=== PATIENT | male | born 1990 | race Caucasian/White ===

== ENCOUNTER 2022-06-19 16:12 | Emergency (ER) | payer MEDICAID ==
[~2022-06-19] VITALS: Ht 180.3 cm; Wt 81.6 kg
--- NOTE | 2022-06-19 16:47 | NUR ---
PT AMBULATORY TO ER BED 15 C/O DIZZINESS, LIGHTHEADEDNESS AND RINGING IN THE EARS FOR MONTHS NOW. NO FACIAL DROOP, FOCAL WEAKNESS NOTED RN PROGRESSIVE [facility]ARE UNIT. PT STATES SYMPTOMS WORST TODAY. STABLE VITALS. NAD NOTED. AWAITING MD HART.
--- NOTE | 2022-06-19 17:53 | NUR ---
DR PETERSON AT BEDSIDE FOR EVAL.
[2022-06-19] MEDS ORDERED: MECLIZINE HCL 12.5 MG TABLET PO ONE (18:00)
[2022-06-19 18:49] LABS: CALCIUM, SERUM 9.2 mg/dL (8.5-10.1); CREATININE 0.9 mg/dL (0.6-1.3); POTASSIUM 3.5 mmol/L (3.5-5.1)
[2022-06-19] MEDS ORDERED: MECLIZINE HCL 25 MG TABLET ONE (18:54)
[2022-06-19 19:01] LABS: THYROID STIMULATING HORMONE 2.376 uIU/mL (0.358-3.74)
[2022-06-19 19:03] LABS: ALBUMIN 3.9 g/dL (3.4-5.0); BILIRUBIN,TOTAL 0.4 mg/dL (0.2-1.0); TOTAL PROTEIN, SERUM 8.1 g/dL (6.4-8.2)
[2022-06-19 19:57] LABS: BASOPHILS % (AUTO) 0.5 % (0.0-2.0); EOSINOPHILS % (AUTO) 1.7 % (0.0-6.0); HEMATOCRIT 48 % (39-51); HEMOGLOBIN 16.6 g/dL (13.5-17.5); LYMPHOCYTES % (AUTO) 26.3 % (20.0-44.0); MEAN CORPUSCULAR HGB CONC 35 g/dl (31.0-36.0); MEAN CORPUSCULAR VOLUME 83 fL (80-96); MONOCYTES % (AUTO) 6.3 % (2.0-12.0); NEUTROPHILS % (AUTO) 65.2 % (43.0-81.0); RED BLOOD CELL COUNT(AUTO) 5.74 MIL/uL (4.5-6.0); WHITE BLOOD COUNT (AUTO) 10.2 K/uL (4.3-11.0)
[2022-06-19 19:58] LABS: BASOPHILS # (AUTO) 0.1 K/uL (0.0-0.2); LYMPHOCYTES # (AUTO) 2.7 K/uL (0.8-4.8); MONOCYTES # (AUTO) 0.6 K/uL (0.1-1.30); NEUTROPHILS # (AUTO) 6.7 K/uL (1.8-8.9)
[2022-06-19 20:43] LABS: PLATELET COUNT (AUTO) 190 K/uL (150-450)
[2022-06-19] MEDS ORDERED: ACET125T3 PO (21:43)
[2022-06-19] MEDS ORDERED: MECL-159 PO (21:43)
[2022-06-19] MEDS ORDERED: PRED50TA PO (21:43)
--- NOTE | 2022-06-19 21:57 | NUR ---
Patient discharged to home in stable condition. Written and verbal after care instructions given. Patient verbalizes understanding of instruction.
[2022-06-19 21:59] VITALS: BP 138/84
== END 2022-06-19 21:59 | disposition home or self-care (01) ==
LOC: ER 16:18
DX: R42 Dizziness and giddiness (principal); Z79.899 Other long term (current) drug therapy
CPT/HCPCS: 99285; 70450; 71045; 93005; 85025; 83735; 85652; 36415; 84443; 80053; 84484; 85730; 83880; J8597